=== PATIENT | female | born 1995 | race African-American/Black ===

== ENCOUNTER 2019-09-28 19:15 | Emergency (ER) | payer OTHER ==
--- OUTSIDE RECORDS SUMMARY | 2019-09-28 19:17 | XMS REPORT ---
:1995 [facility] [address] [place] [address] Dr. Montoya [address] [place] [id number] Care Team Providers Name Role Phone Unavailable Unavailable Unavailable Problems This patient has no known problems. Allergies, Adverse Reactions, Alerts This patient has no known allergies or adverse reactions. Medications This patient has no known medications.
[2019-09-28] MEDS ORDERED: NA CHLORIDE 0.9% 1,000 ML ONE ×2 (21:00→22:55)
[2019-09-28 21:26] LABS: Absolute Lymphocytes (CBC) 1.1 K/uL (0.7-4.9); Basophils % 0.4 % (0-1.3); Hematocrit 34.4 % (36.0-45.0); Lymphocytes % 18.6 % (15.3-44.8); MPV 9.3 fL (7.6-11.3); RBC Red Blood Cell Count 3.59 M/uL (3.86-4.86)
[2019-09-28 21:27] LABS: Urine Bacteria 20-50 /HPF (<20); Urine RBC <5 /HPF (NONE SEEN)
[2019-09-28 21:28] LABS: Urine Culture Reflex Order REFLEXED; Urine Mucus 3+ /HPF (NONE SEEN)
[2019-09-28] MEDS ORDERED: CEFTRIAXONE/SWI 1gm 1 GM/10 ML SYR ONE (21:44)
[2019-09-28 21:48] LABS: Urine Blood NEGATIVE (NEG); Urine Glucose NEGATIVE (NEG); Urine Protein 1+ (NEG); Urine Specific Gravity 1.025 (1.005-1.030)
[2019-09-28 21:50] LABS: BUN Blood Urea Nitrogen 9 mg/dL (7-18); Bicarbonate 25 mmol/L (21-32); Glucose Level 75 mg/dL (74-106); HCG, Quantitative 37252 mIU/mL (1-3); Potassium 3.8 mmol/L (3.5-5.1); Sodium Level 138 mmol/L (136-145)
--- NOTE | 2019-09-28 23:44 | ER ---
Nurse's Notes [facility] Name: Adelaide Clark Age: 23 yrs Sex: Female : 1995 Arrival Date: 09/28/2019 Time: 19:17 Bed 13 Private MD: Diagnosis: related conditions, unspecified, first trimester;Urinary tract infection, site not specified Presentation: 09/28 19:23 Presenting complaint: Patient states: "I have throwing up for a couple of days now. i jd3 don't know if I am dehydrated or what, but I am feeling very weak. I am currently .". Transition of care: patient was not received from another setting of care. Onset of symptoms was September 28, 2019. Risk Assessment: Do you want to hurt yourself or someone else? Patient reports no desire to harm self or others. Initial Sepsis Screen: Does the patient meet any 2 criteria? No. Patient's initial sepsis screen is negative. Does the patient have a suspected source of infection? No. Patient's initial sepsis screen is negative. Care prior to arrival: None. 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 - Social history:: Smoking status: Patient uses tobacco products, denies chronic smoking, but will smoke occasionally. - Ebola Screening: : Patient negative for fever greater than or equal to 101.5 degrees Fahrenheit, and additional compatible Ebola Virus Disease symptoms. Screenin:00 Abuse screen: Denies threats or abuse. Denies injuries from another. Nutritional rr5 screening: No deficits noted. Tuberculosis screening: No symptoms or risk factors identified. Fall Risk IV access (20 points). Total Barros Fall Scale indicates No Risk (0-24 pts). Assessment: 20:20 General: Appears in no apparent distress. comfortable, Behavior is calm, cooperative, rr5 appropriate for age. 20:20 Pain: Denies pain. Neuro: Level of Consciousness is awake, alert, obeys commands, rr5 Oriented to person, place, time, situation, Appropriate for age Reports weakness in body. Cardiovascular: Capillary refill < 3 seconds Patient's skin is warm and dry. Respiratory: Airway is patent Respiratory effort is even, unlabored, Respiratory pattern is regular, symmetrical. GI: Abdomen is round Reports nausea, vomiting. : Reports . EENT: No signs and/or symptoms were reported regarding the EENT system. Derm: Skin is intact, Skin temperature is warm. Musculoskeletal: Circulation, motion, and sensation intact. Capillary refill < 3 seconds. 21:30 Reassessment: Patient appears in no apparent distress at this time. Patient and/or rr5 family updated on plan of care and expected duration. Pain level reassessed. Patient is alert, oriented x 3, equal unlabored respirations, skin warm/dry/pink. 22:57 Reassessment: Patient appears in no apparent distress at this time. Patient is alert, rr5 oriented x 3, equal unlabored respirations, skin warm/dry/pink. no complaints made, 2nd liter of NS hooked and started. 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 09/29 00:00 Reassessment: Patient appears in no apparent distress at this time. Patient is alert, rr5 oriented x 3, equal unlabored respirations, skin warm/dry/pink. discharge instruction given and explained without complaints made. Patient states feeling better. Patient states symptoms have improved. Vital Signs: 09/28 19:25 BP 116 / 66; Pulse 81; Resp 17 S; Temp 98.2(O); Pulse Ox 100% on R/A; Weight 62.6 kg jd3 (R); Height 5 ft. 5 in. (165.10 cm) (R); Pain 0/10; 20:30 BP 107 / 71; Pulse 81; Resp 15; Temp 98; Pulse Ox 100% ; rr5 21:30 BP 101 / 55; Pulse 81; Resp 17; Pulse Ox 99% ; rr5 22:55 BP 101 / 51; Pulse 75; Resp 19; Pulse Ox 99% ; rr5 09/29 00:00 BP 111 / 70; Pulse 70; Resp 19; Temp 98.1; Pulse Ox 99% ; rr5 09/28 19:25 Body Mass Index 22.96 (62.60 kg, 165.10 cm) jd3 ED Course: 09/28 19:17 Patient arrived in ED. cl3 19:24 Triage completed. jd3 19:26 Arm band placed on. jd3 20:14 Elvis Russo RN is Primary Nurse. rr5 20:30 Ruby Mcdonnell FNP-C is PHCP. snw 20:30 Jules Wong MD is Attending Physician. snw 21:05 Patient has correct armband on for positive identification. Placed in gown. Bed in low rr5 position. Call light in reach. Pulse ox on. NIBP on. 21:05 Inserted saline lock: 20 gauge in right antecubital area, using aseptic technique. rr5 Blood collected. 22:19 US Transvaginal Ob In Process Unspecified. EDMS 09/29 00:00 No provider procedures requiring assistance completed. IV discontinued, intact, rr5 bleeding controlled, No redness/swelling at site. Pressure dressing applied. Administered Medications: 09/28 21:05 Drug: NS 0.9% 1000 ml Route: IV; Rate: 1 bolus; Site: right antecubital; rr5 22:45 Follow up: Response: No adverse reaction; IV Status: Completed infusion; IV Intake: rr5 1000ml 21:44 Drug: Rocephin 1 grams Route: IV; Rate: calculated rate; Site: right antecubital; rr5 22:45 Follow up: Response: No adverse reaction; IV Status: Completed infusion; IV Intake: [id number] 22:55 Drug: NS 0.9% 1000 ml Route: IV; Rate: 1 bolus; Site: right antecubital; rr5 09/29 00:00 Follow up: Response: No adverse reaction; IV Status: Completed infusion; IV Intake: rr5 1000ml Intake: 09/28 22:45 IV: 10ml; Total: 10ml. rr5 22:45 IV: 1000ml; Total: 1010ml. rr5 09/29 00:00 IV: 1000ml; Total: 2010ml. rr5 Outcome: 09/28 23:43 Discharge ordered by . snw 09/29 00:00 Discharged to home ambulatory. rr5 Condition: stable Discharge instructions given to patient, Instructed on discharge instructions, follow up and referral plans. medication usage, Demonstrated understanding of instructions, follow-up care, medications, Prescriptions given X 2. 00:06 Patient left the ED. rr5 Signatures: Dispatcher [employer] EDMS Ruby Mcdonnell, [employer] MANAGER-Lorenzo Hanson RN RN jd3 Elvis Russo RN RN rr5 Jenny Montes cl3 Corrections: (The following items were deleted from the chart) 09/28 19:26 19:23 Presenting complaint: Patient states: "I have throwing up for a couple of days jd3 now. i don't know if I am dehydrated or what, but I am feeling very weak." jd3 09/29 00:33 00:00 Patient did not have IV access during this emergency room visit. rr5 rr5
--- NOTE | 2019-09-28 23:45 | EDPHYS ---
Physician Documentation [facility] Name: Adelaide Clark Age: 23 yrs Sex: Female : 1995 Arrival Date: 09/28/2019 Time: 19:17 Bed 13 Private MD: ED Physician Jules Wong HPI: 09/28 21:47 This 23 yrs old Black Female presents to ER via Ambulatory with complaints of snw Nausea/Vomiting, Weakness. 21:47 The patient presents to the emergency department with nausea, vomiting. Onset: The snw symptoms/episode began/occurred suddenly, 2 day(s) ago, and became persistent. Possible causes: . The symptoms are aggravated by nothing. Associated signs and symptoms: Pertinent positives: nausea, vomiting, malaise, Pertinent negatives: abdominal pain, fever, vaginal discharge, vaginal bleeding. Severity of symptoms: At their worst the symptoms were moderate in the emergency department the symptoms have improved. It is unknown whether or not the patient has had similar symptoms in the past. The patient has not recently seen a physician. . 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 - Social history:: Smoking status: Patient uses tobacco products, denies chronic smoking, but will smoke occasionally. - Ebola Screening: : Patient negative for fever greater than or equal to 101.5 degrees Fahrenheit, and additional compatible Ebola Virus Disease symptoms. ROS: 21:47 Eyes: Negative for injury, pain, redness, and discharge, ENT: Negative for injury, snw pain, and discharge, Neck: Negative for injury, pain, and swelling, Cardiovascular: Negative for chest pain, palpitations, and edema, Respiratory: Negative for shortness of breath, cough, wheezing, and pleuritic chest pain, Abdomen/GI: Negative for abdominal pain, diarrhea, and constipation, positive for nausea and vomiting. LMP 08/15 Back: Negative for injury and pain, : Negative for injury, bleeding, discharge, and swelling, MS/Extremity: Negative for injury and deformity, Skin: Negative for injury, rash, and discoloration, Neuro: Negative for headache, weakness, numbness, tingling, and seizure. 21:47 Constitutional: Positive for body aches, malaise. Exam: 21:47 Constitutional: This is a well developed, well nourished patient who is awake, alert, snw and in no acute distress. Head/Face: Normocephalic, atraumatic. Eyes: Pupils equal round and reactive to light, extra-ocular motions intact. Lids and lashes normal. Conjunctiva and sclera are non-icteric and not injected. Cornea within normal limits. Periorbital areas with no swelling, redness, or edema. ENT: Nares patent. No nasal discharge, no septal abnormalities noted. Tympanic membranes are normal and external auditory canals are clear. Oropharynx with no redness, swelling, or masses, exudates, or evidence of obstruction, uvula midline. Mucous membranes moist. Neck: Trachea midline, no thyromegaly or masses palpated, and no cervical lymphadenopathy. Supple, full range of motion without nuchal rigidity, or vertebral point tenderness. No Meningismus. Chest/axilla: Normal chest wall appearance and motion. Nontender with no deformity. No lesions are appreciated. Cardiovascular: Regular rate and rhythm with a normal S1 and S2. No gallops, murmurs, or rubs. Normal PMI, no JVD. No pulse deficits. Respiratory: Lungs have equal breath sounds bilaterally, clear to auscultation and percussion. No rales, rhonchi or wheezes noted. No increased work of breathing, no retractions or nasal flaring. Abdomen/GI: Soft, non-tender, with normal bowel sounds. No distension or tympany. No guarding or rebound. No evidence of tenderness throughout. Back: No spinal tenderness. No costovertebral tenderness. Full range of motion. Skin: Warm, dry with normal turgor. Normal color with no rashes, no lesions, and no evidence of cellulitis. MS/ Extremity: Pulses equal, no cyanosis. Neurovascular intact. Full, normal range of motion. Neuro: Awake and alert, GCS 15, oriented to person, place, time, and situation. Cranial nerves II-XII grossly intact. Motor strength 5/5 in all extremities. Sensory grossly intact. Cerebellar exam normal. Normal gait. Psych: Awake, alert, with orientation to person, place and time. Behavior, mood, and affect are within normal limits. Vital Signs: 19:25 BP 116 / 66; Pulse 81; Resp 17 S; Temp 98.2(O); Pulse Ox 100% on R/A; Weight 62.6 kg jd3 (R); Height 5 ft. 5 in. (165.10 cm) (R); Pain 0/10; 20:30 BP 107 / 71; Pulse 81; Resp 15; Temp 98; Pulse Ox 100% ; rr5 21:30 BP 101 / 55; Pulse 81; Resp 17; Pulse Ox 99% ; rr5 22:55 BP 101 / 51; Pulse 75; Resp 19; Pulse Ox 99% ; rr5 09/29 00:00 BP 111 / 70; Pulse 70; Resp 19; Temp 98.1; Pulse Ox 99% ; rr5 09/28 19:25 Body Mass Index 22.96 (62.60 kg, 165.10 cm) jd3 MDM: 09/28 20:49 Patient medically screened. olena 23:43 Data reviewed: vital signs, nurses notes. Data interpreted: Pulse oximetry: on room air snw is 99 %. Interpretation: normal. Counseling: I had a detailed discussion with the patient and/or guardian regarding: the historical points, exam findings, and any diagnostic results supporting the discharge/admit diagnosis, lab results, radiology results, the need for outpatient follow up, to return to the emergency department if symptoms worsen or persist or if there are any questions or concerns that arise at home. Response to treatment: the patient's symptoms have markedly improved after treatment. Special discussion: Based on the patient's Hx, exam, and Dx evaluation, there is no indication for emergent surgery or inpatient Tx. It is understood by the patient/guardian that if the Sx's persist or worsen they need to return immediately for re-evaluation. Based on the history and exam findings, there is no indication for further emergent testing or inpatient evaluation. I discussed with the patient/guardian the need to see the OB Gyne specialist for further evaluation of the symptoms. 09/28 20:38 Order name: Quantitative Hcg; Complete Time: 21:52 snw 09/28 20:38 Order name: Abo/rh Typing; Complete Time: 21:35 snw 09/28 20:38 Order name: Basic Metabolic Panel; Complete Time: 21:52 snw 09/28 20:38 Order name: CBC with Diff; Complete Time: 21:35 snw 09/28 20:59 Order name: Urine Microscopic Only; Complete Time: 21:35 snw 09/28 21:17 Order name: Urine Dipstick--Ancillary (enter results); Complete Time: 21:50 ar5 09/28 20:38 Order name: Urine Test (obtain specimen); Complete Time: 21:20 snw 09/28 20:38 Order name: IV Saline Lock; Complete Time: 21:20 snw 09/28 21:17 Order name: Urine --Ancillary (enter results); Complete Time: 21:50 ar5 09/28 21:30 Order name: Urine Culture [facility] 09/28 21:50 Order name: US Transvaginal Ob snw 09/28 20:38 Order name: Labs collected and sent; Complete Time: 21:20 snw 09/28 20:38 Order name: NPO; Complete Time: 21:20 snw 09/28 20:38 Order name: Urine Dipstick-Ancillary (obtain specimen); Complete Time: 21:20 snw Administered Medications: 21:05 Drug: NS 0.9% 1000 ml Route: IV; Rate: 1 bolus; Site: right antecubital; rr5 22:45 Follow up: Response: No adverse reaction; IV Status: Completed infusion; IV Intake: rr5 1000ml 21:44 Drug: Rocephin 1 grams Route: IV; Rate: calculated rate; Site: right antecubital; rr5 22:45 Follow up: Response: No adverse reaction; IV Status: Completed infusion; IV Intake: [id number] 22:55 Drug: NS 0.9% 1000 ml Route: IV; Rate: 1 bolus; Site: right antecubital; rr5 09/29 00:00 Follow up: Response: No adverse reaction; IV Status: Completed infusion; IV Intake: rr5 1000ml Disposition: 09/28/19 23:43 Discharged to Home. Impression: related conditions, unspecified, first trimester, Urinary tract infection, site not specified. - Condition is Stable. - Discharge Instructions: First Trimester of , and Urinary Tract Infection, Rehydration, Adult, Eating Plan for Women. - Prescriptions for Vitamin 27- 0.8 mg Oral Tablet - take 1 tablet by ORAL route once daily; 60 tablet. Macrobid 100 mg Oral Capsule - take 1 capsule by ORAL route every 12 hours for 10 days; 20 capsule. - Work release form, Medication Reconciliation Form, Thank You Letter, Antibiotic Education, Prescription Opioid Use form. - Follow up: Emergency Department; When: As needed; Reason: Worsening of condition. Follow up: Private Physician; When: 2 - 3 days; Reason: Recheck today's complaints, Continuance of care, Re-evaluation by your physician. Addendum: 10/02/2019 08:53 Co-signature as Attending Physician, Jules Wong MD I agree with the assessment and c kwok plan of care. Signatures: Dispatcher [employer] Jules Jain MD MD cha Therrien, Shelly, JAMES-C SHOT DROPPER-[place] Lorenzo Campos RN RN jElvis Baez RN RN rr5 Corrections: (The following items were deleted from the chart) 09/29 00:06 09/28 23:43 09/28/2019 23:43 Discharged to Home. Impression: related rr5 conditions, unspecified, first trimester; Urinary tract infection, site not specified. Condition is Stable. Discharge Instructions: and Urinary Tract Infection, Rehydration, Adult, Eating Plan for Women, First Trimester of . Prescriptions for Vitamin 27-0.8 mg Oral Tablet - take 1 tablet by ORAL route once daily; 60 tablet, Macrobid 100 mg Oral Capsule - take 1 capsule by ORAL route every 12 hours for 10 days; 20 capsule. and Forms are Work release form, Medication Reconciliation Form, Thank You Letter, Antibiotic Education, Prescription Opioid Use. Follow up: Emergency Department; When: As needed; Reason: Worsening of condition. Follow up: Private Physician; When: 2 - 3 days; Reason: Recheck today's complaints, Continuance of care, Re-evaluation by your physician. snw
[2019-09-29 00:46] VITALS: TEMP 98
[2019-09-29 00:48] VITALS: O2SAT 99
[2019-09-29 00:54] VITALS: BP 101/51
--- NOTE | 2019-09-29 09:24 | RAD REPORT ---
EXAM DESCRIPTION: US - Transvaginal OB - 09/28/2019 10:19 pm CLINICAL HISTORY: , abdominal and pelvic pain Preliminary findings provided at the time of the study. COMPARISON: None. FINDINGS: A single intrauterine gestation is identified. Gestational sac is normal shaped Heart rate is 138 bpm. No hematoma, mass or other suspicious finding. [place]-rump length measurement corresponds to a 6 W 5 D age. VÍCTOR is 05/18/2020. No suspicion for placental abnormality. Normal right ovary is seen containing a 2.0 centimeter anechoic cyst. No right adnexal abnormality. L eft ovary is not visualized, obscured by bowel. No left adnexal abnormality. No blood or fluid in the cul de sac. IMPRESSION: Single 6 W 5 D intrauterine gestation. VÍCTOR is 05/18/2020. No uterine, adnexal or ovarian abnormalities.
== END 2019-09-29 00:06 | disposition home or self-care (01) ==
LOC: ER 19:15
DX: O23.41 Unspecified infection of urinary tract in pregnancy, first trimester (principal); O99.331 Smoking (tobacco) complicating pregnancy, first trimester; Z3A.01 Less than 8 weeks gestation of pregnancy
CPT/HCPCS: 96365; 96361; 87088; 85025; 87086; 80048; 36415; 86900; 81025; 86901; 84702; 76817; 99284; J0696; J7030 ×2; 81003; 81015

== ENCOUNTER 2020-05-06 04:03 | Inpatient (IN) | payer OTHER ==
--- OUTSIDE RECORDS SUMMARY | 2020-05-06 04:28 | XMS REPORT | Continuity of Care Document ---
:[address] [facility] t Address [address] [place] [address] Care Team Providers Name Role Phone Doctor Unassigned, Name Attending Clinician Unavailable Yong Neal Attending Clinician Problems This patient has no known problems. Allergies, Adverse Reactions, Alerts This patient has no known allergies or adverse reactions. Medications This patient has no known medications. Procedures This patient has no known procedures. Encounters Start End Encounter Admission Attending Care Care Encounter Source Date/Time Date/Time Type Type Clinicians Facility Department ID 2020-04-29 2020-04-29 Orders Doctor BRAULIO [id number] 00:00:00 00:00:00 Only Unassigned, ALEE [id number] [facility] [id number] 2020-04-25 2020-04-25 Routine [facility] [id number] 2028 12:59:37 13:44:13 Laxmi C SECURITY ANALYST [id number] Visit REGIONAL [id number] MATERNAL [id number] & CHILD 107 [facility] 2020-04-18 2020-04-18 Telephone AMY Chanel [id number] 00:00:00 00:00:00 Laxmi C SECURITY ANALYST [id number] REGIONAL [id number] MATERNAL [id number] & CHILD 107 [facility] Results This patient has no known results.
[2020-05-06] MEDS ORDERED: OXYTOCIN/LR 20 UNIT/1,000 ML BAG IV SCH ×2 (05:00→11:45)
[2020-05-06] MEDS ORDERED: OXYTOCIN/LR 20 UNIT/1,000 ML BAG IV ONE (05:15)
[2020-05-06] MEDS ORDERED: METHYLERGONOVINE 0.2MG/ML AMP IM PRN (05:32)
[2020-05-06] MEDS ORDERED: BUTORPHANOL 1 MG/ML INJ IV PRN (05:32)
[2020-05-06] MEDS ORDERED: PROMETHAZINE INJ 25 MG/ML AMP IM PRN (05:32)
[2020-05-06] MEDS ORDERED: CARBOPROST TROME 250 MCG/ML IM PRN (05:32)
[2020-05-06] MEDS ORDERED: Ringers Lactate 1,000 ML IV PRN (05:32)
[2020-05-06 05:44] VITALS: BMI 30.2
[2020-05-06 05:50] LABS: Urine Appearance CLOUDY; Urine Bilirubin NEGATIVE (NEG); Urine Blood NEGATIVE (NEG); Urine Color YELLOW; Urine Glucose NEGATIVE (NEG); Urine Protein NEGATIVE (NEG); Urine pH 6.5 (5.0-7.0)
[2020-05-06 05:53] LABS: Urine Microscopic Reflex ORDER UMIC
[2020-05-06 05:54] LABS: RPR (Rapid Plasma Reagin) NON-REACT (NON-REACT)
[2020-05-06] MEDS ORDERED: Ringers Lactate 1,000 ML IV SCH (06:00)
[2020-05-06 06:04] LABS: Urine Culture Reflex Order REFLEXED
[2020-05-06 06:05] LABS: Absolute Lymphocytes (CBC) 1.7 K/uL (0.7-4.9); Basophils % 0.2 % (0-1.3); Hematocrit 28.8 % (36.0-45.0); Lymphocytes % 22.1 % (15.3-44.8); MPV 10.9 fL (7.6-11.3); RBC Red Blood Cell Count 3.02 M/uL (3.86-4.86)
[2020-05-06 06:05] LABS: Urine Bacteria 20-50 /HPF (<20); Urine RBC <5 /HPF (NONE SEEN)
[2020-05-06] MEDS ORDERED: ROPIVACAINE HCL 0 ML ONE (09:45)
[2020-05-06] MEDS ORDERED: FENTANYL CITR 100 MCG/2 ML IV ONE (10:19)
[2020-05-06] MEDS ORDERED: ROPIVACAINE HCL 100 ML IV PRN (10:19)
--- NOTE | 2020-05-06 10:37 | PREOPHP ---
Date of Admission: 05/06/2020 Adelaide Clark is a 24-year-old 2, para 1, 39 weeks gestation, followed antepartum. Noted to be anemic and has been in the entire . Rh positive. Immune to Rubella. Positive COVID sta tus, but she is completely asymptomatic and has been. 3 cm this morning. Rupture of membranes, elva r fluid. FHTs normal, reactive. Anticipate delivery sometime later today. Full labor talk given. CLAUDETTE/CHAUNCEY Voice ID: [id number]
[2020-05-06] MEDS ORDERED: Ringers Lactate 1,000 ML IV ONE (11:15)
[2020-05-06] MEDS ORDERED: LIDOCAINE 1% MPF 30 ML VIAL ONE (11:16)
[2020-05-06] MEDS ORDERED: Ringers Lactate 2,000 ML IV ONE (11:19)
[2020-05-06] MEDS ORDERED: DIPHENHYDRAMINE 25 MG TAB/CAP PO PRN (11:40)
[2020-05-06] MEDS ORDERED: IBUPROFEN 600 MG TAB PO PRN (11:40)
[2020-05-06] MEDS ORDERED: BISACODYL 10 MG RECTAL SUPP RC PRN (11:40)
[2020-05-06] MEDS ORDERED: DOCUSATE NA/SENNA CONC 1 TAB PO PRN (11:40)
[2020-05-06] MEDS ORDERED: Oxycodone HCl/Acetaminophen 1 TAB TAB PO PRN (11:40)
[2020-05-06] MEDS ORDERED: ACETAMINOPHEN 500 MG TAB PO PRN (11:40)
[2020-05-07] MEDS: Oxycodone HCl/Acetaminophen 1 TAB TAB PO PRN ×3 (00:35→11:53)
--- NOTE | 2020-05-07 08:09 | DS ---
Hospital Course: Adelaide Clark is a 24-year-old 2, para 1, 39 weeks gestation, delivered a 7 pounds 11 ounce male infant, Apgars 9 and 9. Harness type cord around the shoulders and neck. No m ajor restrictions. Epidural anesthesia. No episiotomy. No lacerations. Minimal blood loss. Was S chultze delivery of the placenta, which inspected and noted to be intact and normal. Rh positive. I mmune to rubella. Negative beta strep screen. Had been COVID positive early in the withou t any symptoms whatsoever. ; she is afebrile, ambulating, voiding, lochia is normal. She will be dismissed later today to report back to my office in 6 weeks for followup to report any tempe rature elevation of 100 degrees or greater, severe pain, heavy bleeding, or any other type of abnorma lities. She has had Tdap immunization. She has no post epidural problems. Final Diagnoses: Term intrauterine 39 weeks, vaginal delivery, epidural anesthesia. COVID positive. Now apparently convalescent without symptoms. CLAUDETTE/CHAUNCEY Voice ID: [id number] Report ID: [id number]
--- NOTE | 2020-05-07 09:48 | OP ---
Surgeon: Scott Quinn MD A 24-year-old 2, para 1, 39 weeks gestation, followed antepartum without complications. Rh p ositive, immune to Rubella. Has been anemic the entire and not very good about taking her vitamins and iron. Also COVID positive with absolutely no symptoms. This morning had 3 cm rupture o f membranes, clear fluid. The patient progressed rapidly at approximately 4 cm. Requested and recei michael epidural anesthesia, which gave good effect during remainder of labor and delivery. Second stage of 15 to 20 minutes. Spontaneous vaginal delivery of an estimated 7-pound male infant, partial cord more like a harness around the neck and shoulders. Apgars 9 and 9. Mild shoulder dystocia. Flexio n of the legs and suprapubic pressure affected easy delivery. No episiotomy. No laceration. Schulvasquez morales delivery of the placenta, which inspected and noted to be intact and normal. Less than 150 cc blo od loss. The patient tolerated all procedures well. Final Diagnoses: Term intrauterine , labor induction, vaginal delivery, COVID positive, epi dural anesthesia, mild shoulder dystocia. TASHAC/MODL Voice ID: [id number] Report ID: [id number]
[2020-05-07 14:54] VITALS: BP 122/67; TEMP 98.3
[2020-05-09 18:45] LABS: HBsAG Nonreactive (Nonreactive)
== END 2020-05-07 14:45 | disposition home or self-care (01) | DRG 805 ==
LOC: 2ND-WCNRSY 04:24 → UNDOADMIN 04:24 → 2ND-WC 04:24
PROVIDERS: ADMIT Specialist; ATTEND Specialist
PROC: 10E0XZZ Delivery of Products of Conception, External Approach (ICD-10-PCS; principal; 2020-05-06)
PROC: 10907ZC Drainage of Amniotic Fluid, Therapeutic from Products of Conception, Via Natural or Artificial Opening (ICD-10-PCS; 2020-05-06)
DX: O99.02 Anemia complicating childbirth (principal); U07.1 COVID-19; Z37.0 Single live birth; D64.9 Anemia, unspecified; O66.0 Obstructed labor due to shoulder dystocia; O69.81X0 Labor and delivery complicated by cord around neck, without compression, not applicable or unspecified; Z3A.39 39 weeks gestation of pregnancy
CPT/HCPCS: 36415; 81003; 81015; 85025; 86592; 86901; 87086; 87088; 87340; J0595; J2210; J2550; J2590; J2795; J3010; J7120

== ENCOUNTER 2022-04-03 18:00 | Emergency (ER) | payer OTHER ==
[2022-04-03] MEDS ORDERED: IBUPROFEN 400 MG TAB ONE (18:29)
--- NOTE | 2022-04-03 20:49 | EDPHYS ---
Physician Documentation [facility] Name: Adelaide Clark Age: 26 yrs Sex: Female : 1995 Arrival Date: 04/03/2022 Time: 18:02 Bed 23 Private MD: ED Physician Emanuel Ware HPI: 04/03 20:40 This 26 yrs old Black Female presents to ER via Ambulatory with complaints of Sore kb Throat. 20:40 The patient presents with sore throat. The patient describes throat pain as constant. kb The patient has not experienced similar symptoms in the past. The patient has not recently seen a physician. 20:40 Onset: The symptoms/episode began/occurred today. Severity of symptoms: At their worst kb the symptoms were moderate, in the emergency department the symptoms are unchanged. Modifying factors: The symptoms are alleviated by nothing, the symptoms are aggravated by swallowing. Associated signs and symptoms: Pertinent positives: fever, Sore throat. 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 - Social history:: Smoking status: Patient denies any tobacco usage or history of. ROS: 20:39 Respiratory: Negative for shortness of breath, cough, wheezing, and pleuritic chest kb pain. 20:39 Constitutional: Positive for fever. 20:39 ENT: Positive for sore throat. 20:39 All other systems are negative. Exam: 20:39 Constitutional: This is a well developed, well nourished patient who is awake, alert, kb and in no acute distress. Head/Face: Normocephalic, atraumatic. Cardiovascular: Regular rate and rhythm with a normal S1 and S2. No gallops, murmurs, or rubs. No pulse deficits. Respiratory: Respirations even and unlabored. No increased work of breathing. Talking in full sentences Abdomen/GI: Soft, non-tender. No distention Skin: Warm, dry with normal turgor. Normal color. MS/ Extremity: Pulses equal, no cyanosis. Neurovascular intact. Full, normal range of motion. Neuro: Awake and alert, GCS 15, oriented to person, place, time, and situation. Moves all extremities. Normal gait. Psych: Awake, alert, with orientation to person, place and time. Behavior, mood, and affect are within normal limits. 20:39 ENT: External ear(s): are unremarkable, Ear canal(s): are normal, TM's: are normal, Nose: is normal, Mouth: is normal, Posterior pharynx: Airway: normal, no evidence of obstruction, Tonsils: with exudate, Uvula: normal, midline, swelling, is not appreciated, erythema, that is mild, exudate, that is mild. Vital Signs: 18:11 BP 101 / 65; Pulse 130; Resp 18; Temp 101.8(O); Pulse Ox 100% on R/A; Weight 83.91 kg; 1 Height 5 ft. 8 in. (172.72 cm); Pain 5/10; 19:05 BP 108 / 64; Pulse 102; Resp 20; Temp 100.4(O); Pulse Ox 99% on R/A; 1 20:01 BP 100 / 64; Pulse 92; Resp 20; Pulse Ox 99% on R/A; 1 20:39 BP 106 / 61; Pulse 88; Resp 18; Temp 98.9(O); Pulse Ox 97% on R/A; 1 18:11 Body Mass Index 28.13 (83.91 kg, 172.72 cm) [facility] MDM: 18:05 Patient medically screened. 20:39 Data reviewed: vital signs, nurses notes. Data interpreted: Pulse oximetry: on room air kb is 99 %. Interpretation: normal. Counseling: I had a detailed discussion with the patient and/or guardian regarding: the historical points, exam findings, and any diagnostic results supporting the discharge/admit diagnosis, lab results, the need for outpatient follow up, a family practitioner, to return to the emergency department if symptoms worsen or persist or if there are any questions or concerns that arise at home. 04/03 18:17 Order name: Strep; Complete Time: 19:14 kb 04/03 18:18 Order name: Flu; Complete Time: 19:14 [facility] 04/03 18:18 Order name: COVID-19 SARS RT PCR (Document "Date of Onset" if Symptomatic) [facility] 04/03 18:19 Order name: Group A Streptococcus Rapid Sc EDMS Administered Medications: 18:29 Drug: Ibuprofen 800 mg Route: PO; [facility] 18:29 Follow up: Response: No adverse reaction [facility] Disposition Summary: 04/03/22 20:49 Discharge Ordered Location: Home Condition: Stable kb Diagnosis - Streptococcal pharyngitis kb Followup: kb - With: Emergency Department - When: As needed - Reason: Worsening of condition Followup: kb - With: Private Physician - When: 2 - 3 days - Reason: Recheck today's complaints, Continuance of care, Re-evaluation by your physician Discharge Instructions: - Discharge Summary Sheet kb - Strep Throat, Adult, [id number] kb Forms: - Medication Reconciliation Form kb - Thank You Letter kb - Antibiotic Education kb - Prescription Opioid Use kb - Work release form [facility] Prescriptions: - Augmentin 875-125 mg Oral Tablet - take 1 tablet by ORAL route every 12 hours for 10 days; 20 tablet; Refills: 0, kb Product Selection Permitted Signatures: Dispatcher [employer] Hortensia Arroyo, LEARNING AND DEVELOPMENT ASSOCIATE-C LEARNING AND DEVELOPMENT ASSOCIATE-Diane Chavez, RN RN [facility]
--- NOTE | 2022-04-03 20:49 | ER ---
Nurse's Notes [facility] Name: Adelaide Clark Age: 26 yrs Sex: Female : 1995 Arrival Date: 04/03/2022 Time: 18:02 Bed 23 Private MD: Diagnosis: Streptococcal pharyngitis Presentation: 04/03 18:10 Chief complaint: Patient states: sore throat, fever and cough. [facility] 18:11 Coronavirus screen: Vaccine status: Patient reports receiving the 2nd dose of the covid bh1 vaccine. Client denies travel out of the [place] in the last 14 days. cough unrelated to allergies, fever, shaking with chills, sore throat, Client presents with at least one sign or symptom that may indicate coronavirus-19. Standard/surgical mask placed on the client. Ebola Screen: Patient negative for fever greater than or equal to 101.5 degrees Fahrenheit, and additional compatible Ebola Virus Disease symptoms. Initial Sepsis Screen: Does the patient meet any 2 criteria? No. Patient's initial sepsis screen is negative. Does the patient have a suspected source of infection? No. Patient's initial sepsis screen is negative. Risk Assessment: Do you want to hurt yourself or someone else? Patient reports no desire to harm self or others. Onset of symptoms was April 03, 2022. 18:11 Method Of Arrival: Ambulatory [facility] 18:11 Acuity: CHRISTINE 4 [facility] Triage Assessment: 18:11 General: Appears in no apparent distress. Behavior is calm, cooperative, appropriate [facility] for age. Pain: Complains of pain in uvula, left aspect of posterior pharynx and right aspect of posterior pharynx. EENT: No deficits noted. 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 - Social history:: Smoking status: Patient denies any tobacco usage or history of. Screenin:13 Abuse screen: Denies threats or abuse. Nutritional screening: No deficits noted. [facility] Tuberculosis screening: No symptoms or risk factors identified. Fall Risk None identified. Assessment: 18:13 Respiratory: Airway is patent Respiratory effort is even, unlabored, Breath sounds are bh1 clear bilaterally. EENT: Throat has patchy exudate. Vital Signs: 18:11 BP 101 / 65; Pulse 130; Resp 18; Temp 101.8(O); Pulse Ox 100% on R/A; Weight 83.91 kg; bh1 Height 5 ft. 8 in. (172.72 cm); Pain 5/10; 19:05 BP 108 / 64; Pulse 102; Resp 20; Temp 100.4(O); Pulse Ox 99% on R/A; bh1 20:01 BP 100 / 64; Pulse 92; Resp 20; Pulse Ox 99% on R/A; bh1 20:39 BP 106 / 61; Pulse 88; Resp 18; Temp 98.9(O); Pulse Ox 97% on R/A; bh1 18:11 Body Mass Index 28.13 (83.91 kg, 172.72 cm) [facility] ED Course: 18:02 Patient arrived in ED. as 18:05 Hortensia Dickey FNP-C is [facility]. kb 18:05 Emanuel Ware DO is Attending Physician. kb 18:10 Diane Fowler, DIVINA is Primary Nurse. [facility] 18:11 Arm band placed on right wrist. [facility] 18:12 Triage completed. [facility] 18:13 No apparent distress. Resting quietly. 1 18:13 Patient has correct armband on for positive identification. Bed in low position. Call [facility] light in reach. Side rails up X 1. Pulse ox on. NIBP on. 18:13 No provider procedures requiring assistance completed. Patient did not have IV access [facility] during this emergency room visit. 18:28 Group A Streptococcus Rapid Sc Sent. 1 18:28 COVID-19 SARS RT PCR (Document "Date of Onset" if Symptomatic) Sent. 1 18:28 Flu Sent. [facility] 18:28 Strep Sent. [facility] 19:06 No apparent distress. Resting quietly. Awaiting lab results. 1 20:01 No apparent distress. Resting quietly. Awaiting lab results, Awaiting disposition. 1 20:40 No apparent distress. Resting quietly. Appears to be sleeping. Awaiting lab results, [facility] Awaiting disposition. Administered Medications: 18:29 Drug: Ibuprofen 800 mg Route: PO; [facility] 18:29 Follow up: Response: No adverse reaction [facility] Medication: 18:13 VIS not applicable for this client. [facility] Outcome: 20:49 Discharge ordered by MD. bravo 21:02 Discharged to home ambulatory. [facility] 21:02 Condition: good 21:02 Discharge instructions given to patient, Instructed on discharge instructions, follow up and referral plans. medication usage, Demonstrated understanding of instructions, follow-up care, medications. 21:02 Patient left the ED. [facility] Signatures: Hortensia Dickey, CAR SUPERVISOR-C JAMES-Chandrika Rice Barbara, RN RN [facility]
[2022-04-03 21:33] VITALS: BP 106/61; TEMP 98.9; O2SAT 97
== END 2022-04-03 21:02 | disposition home or self-care (01) ==
LOC: ER 18:00
DX: J02.0 Streptococcal pharyngitis (principal); Z20.822 Contact with and (suspected) exposure to COVID-19
CPT/HCPCS: 87081; 87804 ×2; U0003; 99284